=== PATIENT | male | born 1980 | race Two or more races ===

== ENCOUNTER 2016-07-14 06:24 | Emergency (ER) | payer OTHER ==
[~2016-07-14] VITALS: Ht 177.8 cm; Wt 70.3 kg
[~2016-07-14 06:24] MED LIST: NAPR500T3 PO; TRAM50TA PO
--- NOTE | 2016-07-14 06:42 | PHYS DOC ---
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 Pt states 2300 last night sudden onset epigastric pain described as burning, radiating up towards his throat and around the right side of his abdomen to his right back. At 0400 this morning he says the pain grew much worse. He had a normal BM at 0500 hoping it would help, he also induced emesis x 1 at home which didn't help. No actual nausea or non-induced emesis, no diarrhea, no bad food or travel. No fever/chills/myalgias, appetite decreased this morning. Last PO dinner yesterday, hot dog/chips/pizza. Pt is normally healthy, no prior episodes similar. ED VS: 97.9, 74, 20, 105/41 Timing/Duration: getting worse Severity: severe Modifying Factors: worse with eating Associated Symptoms: loss of appetite, malaise, other Allergies: Coded Allergies: No Known Drug Allergies (Unverified , 05/10/15) Past Medical History Medical History: no pertinent history Surgical History: no surgical history Social History Smoker: non-smoker Alcohol: none Drugs: none Review of Systems Constitutional: denies chills, denies diaphoresis, denies fever, malaise Respiratory: denies cough, denies shortness of breath Cardiovascular: denies chest pain, denies palpitations, denies syncope Gastrointestinal: see HPI Genitourinary: denies dysuria, denies frequency, denies hematuria Musculoskeletal: denies back pain, denies joint swelling, denies neck pain Psychiatric/Neurological: denies headache, denies numbness, denies paresthesia Physical Exam General Appearance: WD/WN, severe distress Eyes: bilateral eye normal inspection, bilateral eye PERRL, bilateral eye EOMI Ear, Nose, Throat: hearing grossly normal, normal ENT inspection, normal pharynx Neck: non-tender, supple Respiratory: normal breath sounds, no respiratory distress Cardiovascular: normal peripheral pulses, regular rate, rhythm Gastrointestinal: soft (ND, BS diminished, RUQ/RLQ TTP with guard no farzad/mass) Rectal: deferred Back: no CVA tenderness, no vertebral tenderness Extremities: non-tender, normal inspection Neurologic/Psychiatric: 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 PHYSICIAN: MICHELLE JASON DO REASON: epigastric pain PROCEDURE: PORTABLE CHEST 1V EXAM: CHEST 1 VIEW History: Epigastric pain COMPARISON: None TECHNIQUE: Single portable radiograph of the chest FINDINGS: The cardiac silhouette is unremarkable. The lungs are clear bilaterally. The costophrenic sulci are clear and well demarcated. IMPRESSION: No radiographic evidence of an acute cardiopulmonary process. DICTATED AND SIGNED BY: LARISA OCHOA MD DATE: 07/14/16932 CC: ZUHAIR KEVIN MD; MICHELLE JASON DO ~ PATIENT: LESLIE SOUTH ACCOUNT: [id number] : 1980 LOCATION: ER AGE: 35 SEX: M EXAM STATUS: REG ER ORD. PHYSICIAN: MICHELLE JASON DO REASON: epigastric/RLQ pain PROCEDURE: CT ABDOMEN PELVIS WO CONTRAST CT of the abdomen and pelvis without contrast, 07/14/2016: History: Right-sided pain Noncontrast scans were obtained through the abdomen and pelvis utilizing the renal stone protocol. No intrarenal calculi are identified. The renal collecting systems and ureters are not dilated. No ureteral calculus is identified. The partially filled urinary bladder is unremarkable. A couple of lower pelvic calcifications are compatible with phleboliths. The gallbladder is distended. The central intrahepatic bile ducts are mildly distended. The common bile duct is enlarged measuring 17 mm in width at the level of the superior aspect of the head of the pancreas. No radiopaque calculi are seen in the gallbladder or common bile duct. No pancreatic mass is seen on this noncontrast study. The spleen is of normal size. The abdominal aorta is unremarkable. The bowel loops are not dilated. The visualized portions of the appendix show no abnormality. No free fluid or free air is evident in the abdomen or pelvis. IMPRESSION: 1. No urinary tract calculi are identified. 2. Dilatation of the gallbladder with intrahepatic and extrahepatic bile ductal dilatation. The findings raise the possibility of an occult distal common bile duct calculus or stricture. Right upper quadrant abdominal sonography is suggested for further evaluation. PQRS Compliance Statement: One or more of the following individualized dose reduction techniques were utilized for this examination: 1. Automated exposure control 2. Adjustment of the mA and/or kV according to patient size 3. Use of iterative reconstruction technique DICTATED AND SIGNED BY: GRACE GOMEZ MD DATE: 07/14/16 0750 CC: ZUHAIR KEVIN MD; MICHELLE JASON DO ~ PATIENT: LESLIE SOUTH ACCOUNT: [id number] : 1980 LOCATION: ER AGE: 35 SEX: M EXAM STATUS: REG ER ORD. PHYSICIAN: MICHELLE JASON DO REASON: RUQ pain, CT indicated follow-up with US PROCEDURE: ABDOMEN LTD Right upper quadrant abdominal ultrasound, 07/14/2016: History: Right upper quadrant pain, abnormal CT study The gallbladder is mildly distended. It contains foci of increased echogenicity with associated posterior acoustic shadowing compatible with gallstones. The gallbladder wall is not thickened. There is intrahepatic and extrahepatic bile duct dilatation as noted on the current CT study. There are echogenic foci in the right lobe of the liver suggesting inspissated bile or calculi within right hepatic ducts. The common hepatic duct at the manuel hepatis level measures 11 mm. No calculus is seen in the visualized portion of the common bile duct. The visualized portions of the pancreas show no evidence of a mass. The right kidney is unremarkable. IMPRESSION: 1. Cholelithiasis. 2. Intrahepatic and extrahepatic bile ductal dilatation. An occult distal common bile duct calculus or a stricture remain a possibility. 3. Echogenic foci in the right lobe of liver suggesting calculi or inspissated bile within right hepatic ducts. DICTATED AND SIGNED BY: GRACE GOMEZ MD DATE: 07/14/16 1022 CC: ZUHAIR KEVIN MD; MICHELLE JASON DO ~ AST 41, ALT 80, t. bili 1.2, UDS + cannabinoids 1050: Pt received toradol 30mg IV, and fentanyl 25mcg IV x 2 currently still with some discomfort but much better. Agreeable to [facility] transfer for specialty intervention. Will keep NPO. 1112: Pt discussed with Dr Gunn, stations superintendent hospitalist at [facility] who accepts pt for Medsurg admission. Will need GI and/or general surgery consultations necessitating transfer to [facility]. Pt is agreeable. Departure Time of Disposition: 11:13 Disposition: 05 XFER OTHER Diagnosis: choledocholithiasis Condition: STABLE Additional Instructions: EMS transfer to [facility] for Medsurg admission Dr Gunn is accepting. MICHELLE JASON DO July 14, 2016 06:42
[2016-07-14 07:14] LABS: BASO # 0.1 x10^3/uL (0.0-0.2); BASO % 1 % (0-3); EOS # 0.1 x10^3/uL (0.0-0.7); EOS % 1 % (0-3); HEMATOCRIT 43.4 % (39.0-53.0); HEMOGLOBIN 15.2 g/dL (13.0-17.5); LYMPH # 1.5 x10^3/uL (1.0-4.8); LYMPH % 15 % (24-48); MEAN CORPUSCULAR HEMOGLOBIN 30 pg (25-35); MEAN CORPUSCULAR HGB CONC 35 g/dL (31-37); MEAN CORPUSCULAR VOLUME 85 fL (79-100); MONO # 0.7 x10^3/uL (0.0-1.1); MONO % 6 % (0-9); NEUT # 7.8 x10^3uL (1.8-7.7); NEUT % 77 % (31-73); PLATELET COUNT 207 x10^3/uL (140-400); RED CELL DISTRIBUTION WIDTH 13.1 % (11.5-14.5); WHITE BLOOD COUNT 10.2 x10^3/uL (4.0-11.0)
[2016-07-14] MEDS ORDERED: LIDO:MAALOX 1:1 20 ML SINGLE DOSE PO ONE (07:15)
[2016-07-14] MEDS ORDERED: FAMOTIDINE 20 MG/2 ML VIAL IVP ONE (07:15)
[2016-07-14] MEDS ORDERED: ONDANSETRON PF 4 MG/2 ML VIAL. IV ONE (07:15)
[2016-07-14] MEDS ORDERED: KETOROLAC 30 MG/ML VIAL. IV ONE (07:15)
[2016-07-14] MEDS ORDERED: IV NORMAL SALINE 1,000ML 1,000 ML IV SCH (07:15)
[2016-07-14 07:23] LABS: AMPHETAMINE/METHAMPHETAMINE NEG (NEG); BARBITURATES NEG (NEG); BENZODIAZEPINES NEG (NEG); CANNABINOIDS POS (NEG); COCAINE NEG (NEG); METHADONE NEG (NEG); OPIATES NEG (NEG); PHENCYCLIDINE NEG (NEG)
[2016-07-14 07:26] LABS: BILIRUBIN,URINE NEG (NEG); CLARITY,URINE CLEAR; COLOR,URINE YELLOW; GLUCOSE,URINE NEG (NEG); UROBILINOGEN,URINE 0.2 mg/dL (0.2 mg/dL)
[2016-07-14 07:27] LABS: AMORPHOUS SEDIMENT,UR PRESENT /HPF; BACTERIA,URINE 0 /HPF (0-FEW); NITRITE,URINE NEG (NEG); RBC,URINE 0 /HPF (0-2); WBC,URINE RARE /HPF (0-4)
[2016-07-14] MEDS: fentaNYL PF 100 MCG/2 ML VIAL IV PRN ×3 (07:28→11:36)
[2016-07-14 07:32] LABS: ALBUMIN 4.1 g/dL (3.4-5.0); ALBUMIN/GLOBULIN RATIO 1.3 (1.0-1.7); CALCIUM 10.3 mg/dL (8.5-10.1); GFR 85.5; POTASSIUM 3.6 mmol/L (3.5-5.1); TOTAL BILIRUBIN 1.2 mg/dL (0.2-1.0); TOTAL PROTEIN 7.3 g/dL (6.4-8.2)
--- NOTE | 2016-07-14 08:02 | RAD ---
CT of the abdomen and pelvis without contrast, 07/14/2016: History: Right-sided pain Noncontrast scans were obtained through the abdomen and pelvis utilizing the renal stone protocol. No intrarenal calculi are identified. The renal collecting systems and ureters are not dilated. No ureteral calculus is identified. The partially filled urinary bladder is unremarkable. A couple of lower pelvic calcifications are compatible with phleboliths. The gallbladder is distended. The central intrahepatic bile ducts are mildly distended. The common bile duct is enlarged measuring 17 mm in width at the level of the superior aspect of the head of the pancreas. No radiopaque calculi are seen in the gallbladder or common bile duct. No pancreatic mass is seen on this noncontrast study. The spleen is of normal size. The abdominal aorta is unremarkable. The bowel loops are not dilated. The visualized portions of the appendix show no abnormality. No free fluid or free air is evident in the abdomen or pelvis. IMPRESSION: 1. No urinary tract calculi are identified. 2. Dilatation of the gallbladder with intrahepatic and extrahepatic bile ductal dilatation. The findings raise the possibility of an occult distal common bile duct calculus or stricture. Right upper quadrant abdominal sonography is suggested for further evaluation. PQRS Compliance Statement: One or more of the following individualized dose reduction techniques were utilized for this examination: 1. Automated exposure control 2. Adjustment of the mA and/or kV according to patient size 3. Use of iterative reconstruction technique
[2016-07-14] MEDS ORDERED: IV NORMAL SALINE 50ML 50 ML ONE (08:51)
[2016-07-14] MEDS ORDERED: cefTRIAXone SODIUM 1 GM VIAL IV ONE (08:52)
--- NOTE | 2016-07-14 09:37 | RAD ---
EXAM: CHEST 1 VIEW History: Epigastric pain COMPARISON: None TECHNIQUE: Single portable radiograph of the chest FINDINGS: The cardiac silhouette is unremarkable. The lungs are clear bilaterally. The costophrenic sulci are clear and well demarcated. IMPRESSION: No radiographic evidence of an acute cardiopulmonary process.
--- NOTE | 2016-07-14 10:28 | ACF ---
Admission Criteria Forms CARDIOLOGY [facility] Clinical Indications for Admission to Inpatient Care ( Place 'X' for any and all applicable criteria): Hospital admission is needed for appropriate care of the patient because of ANY ONE of the following (1): [ ] I. Hemodynamic instability as indicated by ALL of the following (1)(2)(3) (4)(5) [ ]a) Vital signs or other findings not as expected for chronic patient condition or baseline [ ]b) Instability indicated by ANY ONE of the following: [ ]i) Hypotension [ ]ii) Symptomatic Tachycardia unresponsive to treatment ( e.g., analgesia, fluids, sedation as indicated) [ ]iii) Inadequate perfusion indicated by ANY ONE of the following: [ ] 1) Lactic acidosis (> 2 mmol/L) [ ] 2) New abnormal capillary refill (> 3 seconds) [ ] 3) Reduced urine output [ ] 4) New altered mental status [ ]iv) Orthostatic vital sign changes unresponsive to treatment (e.g., fluids) [ ]v) IV inotropic or vasopressor medication required to maintain adequate blood pressure or perfusion [ ] II. Severe heart failure as indicated by ANY ONE of the following(17)(18) [ ]a) Respiratory distress [ ]b) Hypotension [ ]c) Anasarca (refractory to outpatient therapy) [ ]d) Cardiac arrhythmias of immediate concern [ ]e) Myocardial ischemia [ ] III. Cardiac arrhythmias or findings of immediate concern indicated by ANY ONE of the following (19)(20): [ ] a) Heart rhythms that are inherently dangerous or unstable indicated by ANY ONE of the following (21)(22)(23): [ ] i) Resuscitated ventricular fibrillation or cardiac arrest [ ] ii) Ventricular escape rhythm [ ] iii) Sustained ventricular tachycardia (30 seconds or more of ventricular rhythm at greater than 100 beats per minute) [ ] iv) Nonsustained ventricular tachycardia and ANY ONE of the following: [ ] 1) Suspected cardiac ischemia as cause or consequence of ventricular tachycardia [ ] 2) In setting of acute myocarditis [ ] b) Unstable cardiac conduction defects indicated by ANY ONE of the following(23)(24)(25) [ ] i) Type II second-degree atrioventricular block [ ]ii) Third-degree atrioventricular block [ ]iii) New-onset left bundle branch block with suspected myocardial ischemia [ ]c) Any heart rhythm and ANY ONE of the following (21)(22)(26)(27) (28) [ ] i) Continuous long-term ECG monitoring needed (e.g., initiation of drug requiring monitoring for more than 24 hours) [ ] ii) Patient has automatic implanted cardioverter defibrillator that is repeatedly firing, malfunctioning, or in need of immediate adjustment of settings beyond the scope of ambulatory or observation care [ ]d) Heart rhythms of concern due to ANY ONE of the following: [ ] i) Hypotension [ ] ii) Respiratory distress [ ] iii) Association with other significant symptoms (e.g., bradycardia with syncope or ongoing dizziness, supraventricular tachycardia with chest pain (14)(15)(17) [ ] IV. Monitoring for cardiac contusion beyond the scope of observation care needed [A](30)(31)(32) [ ] V. Surgical or device complication (e.g., valve replacement complication , pacemaker dysfunction) (35)(41)(44)(45)(46) [ ] . Inpatient palliative care needed. [B](49) Also use Inpatient Palliative Care Criteria [ ] VII. Nonbacterial thrombotic (marantic) endocarditis (36)(43)(47)(48) [ ] VIII. Cardiology condition, symptom, or finding for which emergency and observation care has failed or are not considered appropriate. [ ] IX. Acute valvular disease requiring inpatient as indicated by ANY ONE of the following (41) [ ]a) Acute valvular regurgitation (42) [ ]b) Noninfectious valvulitis (43) [ ]c) Obstructive valve thrombosis [ ]d) Paravalvular leak [ ]e) Other significant valvular disorder remaining after emergency or observation level of care (as appropriate) [ ]X. Pericardial disease requiring inpatient treatment as indicated by ANY ONE of the following (33)(34)(35)(36)(37) [ ]a) Suspected tamponade (38)(39)(40) [ ]b) Hemopericardium [ ]c) Other significant pericardial disorder remaining after emergency or observation level of care (as appropriate) [ ] XI. Cardiac ischemia beyond scope of emergency and observation care. [ ] XII. Hypertension requiring inpatient treatment as indicated by ANY ONE of the following (6)(7)(8) [ ]a) SBP greater than 220 mm Hg or DBP greater than 120 mmHg despite treatment [ ]b) SBP greater than 140 mm Hg or DBP greater than 100 mm Hg with evidence of acute end organ damage as indicated by ANY ONE of the following [ ] i) Encephalopathy [ ] ii) Acute renal failure as indicated by new onset of ANY ONE of the following (9)(10)(11)(12)(13) [ ]1) 3-fold rise in serum creatinine from baseline [ ]2) Serum creatinine greater than 4 mg/dL ( 354 micromoles/L) with acute rise greater than 0.5 mg/dL (44.2 micromoles/L) [ ]3) Reduction of more than 75% in estimated glomerular filtration rate from baseline [ ]4) Estimated glomerular filtration rate less than 35 mL/min/1.73m2 (0.59 mL/sec/1.73m2) in child up to 18 years of age [ ]5) Cessation of urine output indicated by ALL of the following [ ]A. Adequate volume status [ ]B. Inadequate urine output as indicated by ANY ONE of the following [ ]a. Urine output less than 0.3 mL/kg/hr for 24 hours [ ]b. Anuria (urine output less than 0.1 mL/kg/hr) for 12 hours [ ] iii) Aortic dissection [ ] iv) Myocardial Ischemia [ ] v) Left ventricular heart failure [ ]vi) Retinal Hemorrhage [ ]vii) Other significant finding [ ]c) Hypertension in child requiring inpatient treatment as indicated by ALL of the following(14)(15)(16) [ ] i) Outpatient treatment not effective, not available, or not appropriate [ ]ii) SBP or DBP greater than 95th percentile for age [ ]iii) Evidence of acute end organ damage as indicated by ANY ONE of the following [ ]1) Altered mental status [ ]2) Acute renal failure as indicated by new onset of ANY ONE of the following(9)(10)(11)(12)(13) [ ]A. 3-fold rise in serum creatinine from baseline [ ]B. Serum creatinine greater than 4 mg/dL (354 micromoles/L) with acute rise greater than 0.5 mg/dL (44.2 micromoles/L) [ ]C. Reduction of more than 75% in estimated glomerular filtration rate from baseline [ ]D. Estimated glomerular filtration rate less than 35 mL/min/1.73m2 (0.59 mL/sec/1.73m2) in child up to 18 years of age [ ]E. Cessation of urine output indicated by ALL of the following [ ]a. Adequate volume status [ ]b. Inadequate urine output as indicated by ANY ONE of the following [ ]i) Urine output less than 0.3 mL/kg/hr for 24 hours [ ]ii) Anuria ( urine output less than 0.1 mL/kg/hr) for 12 hours [ ]3) Severe headache [ ]4) Visual disturbance [ ]5) Retinal hemorrhage [ ]6) Other significant finding [ ]XIII. Complications of transplanted heart indicated by ANY ONE of the following(61): [ ]a) Acute graft rejection requiring inpatient management (eg, intravenous immunosuppression)(62)(63) [ ]b) Acute graft heart failure indicated by ANY ONE of the following(64): [ ]i) Hemodynamic instability [ ]ii) Cardiac arrhythmias of immediate concern [ ]iii) Pulmonary edema that is very severe (eg, mechanical ventilation needed, imminent or likely, need for 100% oxygen to keep oxygen saturation above 90%) [ ]iv) Pulmonary edema that is persistent as indicated by ALL of the following: [ ]1) New need for oxygen therapy to keep oxygen saturation above 90% (or increased FiO2 need from baseline) [ ]2) Has not improved sufficiently with emergency department or observation care IV diuretics or other heart failure treatments[E] [ ]v) Altered mental status that is severe or persistent [ ]vi) Increased creatinine (new on laboratory test) with reduction of more than 50% in estimated glomerular filtration rate from baseline [ ]vii) Progressively (ongoing) rising creatinine (known from past laboratory test) with reduction of more than 25% in estimated glomerular filtration rate from baseline [ ]viii) Acute renal failure [ ]ix) Acute peripheral ischemia (eg, examination shows pulseless, cool, mottled, or cyanotic extremity) [ ]x) Pulmonary artery catheter monitoring needed [ ]xi) Other sign or symptom of heart failure requiring inpatient treatment (ie, too severe or not responsive to outpatient and observation care treatment) [ ]c) Infection requiring inpatient management (eg, Hemodynamic instability, need for intravenous antimicrobial treatment)(66)(67)(68)(69)(70) [ ]d) Cardiac allograft vasculopathy requiring inpatient management ( eg evidence of cardiac ischemia)(71) [ ]e) Other complication of transplanted heart (eg, stroke, severe pulmonary hypertension, severe valvular dysfunction) requiring inpatient management(72) The original [facility] [employer] [facility] content created by [facility] has been revised. The portions of the content which have been revised are identified through the use of italic text or in bold, and [facility] has neither reviewed nor approved the modified material. All other unmodified content is copyright [facility]. Please see references footnoted in the original [facility] edition 2016 BELKIS CORADO July 14, 2016 10:28
--- NOTE | 2016-07-14 10:38 | RAD ---
Right upper quadrant abdominal ultrasound, 07/14/2016: History: Right upper quadrant pain, abnormal CT study The gallbladder is mildly distended. It contains foci of increased echogenicity with associated posterior acoustic shadowing compatible with gallstones. The gallbladder wall is not thickened. There is intrahepatic and extrahepatic bile duct dilatation as noted on the current CT study. There are echogenic foci in the right lobe of the liver suggesting inspissated bile or calculi within right hepatic ducts. The common hepatic duct at the manuel hepatis level measures 11 mm. No calculus is seen in the visualized portion of the common bile duct. The visualized portions of the pancreas show no evidence of a mass. The right kidney is unremarkable. IMPRESSION: 1. Cholelithiasis. 2. Intrahepatic and extrahepatic bile ductal dilatation. An occult distal common bile duct calculus or a stricture remain a possibility. 3. Echogenic foci in the right lobe of liver suggesting calculi or inspissated bile within right hepatic ducts.
[2016-07-14 12:46] VITALS: BP 111/62
--- NOTE | 2016-07-18 10:18 | EKG ---
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
== END 2016-07-14 13:17 | disposition short-term general hospital (02) ==
LOC: ER 06:27
DX: K80.50 Calculus of bile duct without cholangitis or cholecystitis without obstruction (principal)
CPT/HCPCS: 36415; 71010; 74176; 76705; 80053; 80305; 81001; 82550; 83690; 84484; 85027; 93005; 96361; 96374; 96375; 96376; 99285; J0696; J1885; J2405; J3010; S0028; G0481; J7030